=== PATIENT | female | born 1985 ===

== ENCOUNTER 2017-01-09 15:55 | Emergency (ER) | payer SELFPAY ==
[2017-01-09 17:42] VITALS: BP 120/78
[2017-01-09] MEDS ORDERED: PERCOCET 5/325 PO ONE (19:42)
[2017-01-09] MEDS ORDERED: ZOFRAN ODT PO ONE (19:42)
[2017-01-09] MEDS ORDERED: XYLOCAINE 2%/EPI 1:100,000 INFILTRATI ONE (19:44)
[2017-01-09] MEDS ORDERED: XYLOCAINE 2%/ EPI 1:200,000 INFILTRATI ONE (20:35)
--- NOTE | 2017-01-09 21:32 | Emergency Department Report ---
HPI - General Chief Complaint: Skin/Abscess/Foreign Body Time Seen by Provider: 01/09/17 19:41 - HPI HPI: 31-year-old female presents today with an abscess to her left underarm. Positive for history of abscesses in the same region and currently has a keloid. Patient states that the abscess flared 4 days ago. Positive for increased in size and rates her pain as a 10 out of 10. Her last flare was 6 months ago. Denies trying any medication for pain relief. Denies fever, chills , nausea, vomiting, chest pain, shortness of breath, abdominal pain. Denies bleeding or discharge. Denies numbness, weakness, paresthesias. ED Past Medical Hx - Past Medical History Previous Medical History?: Yes Hx Hypertension: No Hx Renal Disease: No Hx Seizures: No Hx Psychiatric Treatment: Yes (bipolar, depression, takes lithium and Wellbutrin ) Hx Asthma: Yes (During childhoood- no tx in years) Hx HIV: No - Surgical History Past Surgical History?: Yes Hx Breast Surgery: Yes (cyst removal) - Social History Smoking Status: Current Some Day Smoker Substance Use Type: Alcohol - Medications Home Medications: Home Medications Medication Instructions Recorded Confirmed Last Taken Type Bupropion HCl [Wellbutrin XL] 300 mg PO QAM 03/28/15 03/31/15 03/30/15 History [place] Carbonate 300 mg PO BID 03/28/15 03/31/15 03/30/15 History HYDROcodone/ACETAMINOPHEN [Xodol 1 tab PO Q6H PRN 03/31/15 03/31/15 03/30/15 History 7.5-300 mg TAB] HYDROcodone/APAP 5-325 [[place] 1 each PO Q6HR PRN #20 tablet 03/31/15 Unknown Rx 5/325] Ibuprofen [Motrin 800 MG tab] 1 tab PO PRN PRN 03/31/15 03/31/15 03/30/15 History Acetaminophen/Codeine [Tylenol 1 tab PO Q6H PRN #12 tab 01/09/17 Unknown Rx /Codeine # 3 tab] Cephalexin [Keflex] 500 mg PO Q12HR #20 cap 01/09/17 Unknown Rx Sulfamethoxazole/Trimethoprim 1 each PO BID #20 tablet 01/09/17 Unknown Rx [Bactrim DS TAB] ED Review of Systems ROS: Stated complaint: ABSCESS UNDER LT ARM Other details as noted in HPI Constitutional: denies: chills, fever, malaise Eyes: denies: eye pain ENT: denies: ear pain, throat pain, congestion Respiratory: denies: cough, shortness of breath, wheezing Cardiovascular: denies: chest pain, palpitations Endocrine: no symptoms reported Gastrointestinal: denies: abdominal pain, nausea, vomiting Skin: other (abscess of left underarm) Neurological: denies: headache, weakness, numbness, paresthesias Physical Exam - Physical Exam Vital Signs: Vital Signs 01/09/17 17:37 Temperature 97.9 F Pulse Rate 87 Respiratory 16 Rate Blood Pressure 120/78 O2 Sat by Pulse 100 Oximetry Physical Exam: GENERAL: The patient is well-developed and well-nourished. Patient is in NAD. SKIN: 3 cm in diameter abscess palpated with an underlying keloid of left axilla. Positive for fluctuance. Extremely tender to touch. No drainage or bleeding. HEAD: Normocephalic. Atraumatic. NECK: Supple, nontender, without lymphadenopathy. No meningitic signs are noted. CHEST/LUNGS: Clear to auscultation throughout. HEART/CARDIOVASCULAR: Regular rate and rhythm. No murmurs, rubs or gallops. ABDOMEN: Abdomen is soft, nontender. Bowel sounds normoactive. No guarding or rebound tenderness. EXTREMITIES: No cyanosis, clubbing or edema. Full ROM in all four extremities. Normal sensation. Peripheral pulses intact. Capillary refill less than 2 seconds. NEURO: Alert and oriented x 3. Normal gait. ED Course Vital Signs 01/09/17 17:37 Temperature 97.9 F Pulse Rate 87 Respiratory 16 Rate Blood Pressure 120/78 O2 Sat by Pulse 100 Oximetry - I & D Left Arm Type of Procedure: Simple Site: Left axillary region Blade Size: 11 I & D Procedure: betadine prep, sterile drapes applied, sterile dressing applied Progress: Anesthesia was obtained with 6 ml of lidocaine. The area was prepped in the usual sterile fashion. A number 11 scalpel was used to create an incision. Return was 4 ml of purulent fluid. Loculations were broken up. The site was packed with iodoform. A dressing was placed over the site. The patient tolerated the procedure well. Wound care instructions were given. ED Medical Decision Making - Lab Data Vital Signs 01/09/17 17:37 Temperature 97.9 F Pulse Rate 87 Respiratory 16 Rate Blood Pressure 120/78 O2 Sat by Pulse 100 Oximetry Critical care attestation.: If time is entered above; I have spent that time in minutes in the direct care of this critically ill patient, excluding procedure time. ED Disposition Clinical Impression: Abscess Disposition: [id number] TO HOME OR SELFCARE Is pt being admited?: No Does the pt Need Aspirin: No Condition: Stable Instructions: Abscess (ED), Abscess Incision and Drainage (ED) Additional Instructions: Follow-up with primary care provider. Return to the emergency department if symptoms worsen. Prescriptions: Acetaminophen/Codeine [Tylenol /Codeine # 3 tab] 1 tab PO Q6H PRN #12 tab PRN Reason: Pain Cephalexin [Keflex] 500 mg PO Q12HR #20 cap Sulfamethoxazole/Trimethoprim [Bactrim DS TAB] 1 each PO BID #20 tablet Referrals: NARCISO STOUT MD [Primary Care Provider] - 3-5 Days [facility] [Outside] - 3-5 Days LEONEL GALAN MD [Staff Physician] - 3-5 Days Forms: Work/School Release Form(ED) Time of Disposition: 21:35
== END 2017-01-09 21:46 | disposition home or self-care (01) ==
LOC: ED 15:55
DX: L02.412 Cutaneous abscess of left axilla (principal); F17.210 Nicotine dependence, cigarettes, uncomplicated
CPT/HCPCS: 99282; Q0162